=== PATIENT | female | born 1970 | race African-American/Black ===

== ENCOUNTER → 2018-07-14 | Day surgery (SDC) | payer OTHER ==
[~2018-07-14] MED LIST: MIDAZOLAM HCL 2 MG/2 ML SINGLE DOSE VIAL ONE
[2018-07-14 10:35] VITALS: BMI 24.9
[2018-07-14 14:16] VITALS: TEMP 98.4
[2018-07-14 14:18] VITALS: BP 131/86; PULSE 80
--- NOTE | 2018-07-15 15:31 | PATH ---
Surgical Pathology Report Patient Name: NEENA PALOMINO [facility]. Rec. #: [id number] /Age/Gender: 1970 (Age: 48) / F Account: [id number] Location: [facility] Taken: 07/14/2018 Received: 07/14/2018 Reported: 07/15/2018 Physicians: Fannie Lorenzo M.D. Specimen(s) Received A: LEFT BREAST CORE BIOPSY WITH CALCIFICATIONS B: LEFT BREAST CORE BIOPSY WITHOUT CALCIFICATIONS Clinical History Nonpalpable lesion Mammographic findings: Microcalcification, suspicious Final Diagnosis A. BREAST, LEFT, WITH CALCIFICATIONS, STEREOTACTIC CORE BIOPSY: BENIGN PREDOMINANTLY FATTY BREAST TISSUE WITH RARE MICROCALCIFICATIONS. SKIN WITHOUT SIGNIFICANT PATHOLOGIC FINDINGS. B. BREAST, LEFT, WITHOUT CALCIFICATIONS, STEREOTACTIC CORE BIOPSY: BENIGN FIBROADIPOSE TISSUE. Electronically Signed Es Jhaveri M.D. Gross Description A. Received in formalin labeled "left breast with calcifications," is a 1.8 x 1.5 x 0.3 cm aggregate of multiple clarke-yellow, irregular to cylindrical portions of fibroadipose tissue. The formalin is filtered and the specimen is entirely submitted in one cassette. B. Received in formalin labeled "left breast without calcifications," is a 2.2 x 2.0 x 0.3 cm aggregate of multiple clarke-yellow, irregular to cylindrical portions of fibroadipose tissue. The formalin is filtered and the specimen is entirely submitted in one cassette. Time to formalin fixation: 5 minutes Total formalin fixation time: Approximately 6 hours. 07/14/2018 [facility]07/14/2018
== END | disposition home or self-care (01) ==
LOC: FASU 09:47
PROVIDERS: ATTEND Surgery Surgical Oncology
PROC: 0HBU3ZX Excision of Left Breast, Percutaneous Approach, Diagnostic (ICD-10-PCS; principal; 2018-07-14 10:30)
DX: N64.89 Other specified disorders of breast (principal); R92.1 Mammographic calcification found on diagnostic imaging of breast
CPT/HCPCS: 19081; 88305-TC; 94760